=== PATIENT | male | born 1955 | race African-American/Black ===

== ENCOUNTER 2017-04-30 15:13 | Inpatient (IN) ==
[2017-04-30] MEDS ORDERED: METOPROLOL TARTRATE 5 MG/5 ML VIAL IV STA (15:54)
[2017-04-30] MEDS ORDERED: METOPROLOL TARTRATE 5 MG/5 ML VIAL IV ONE (15:58)
[2017-04-30 16:06] LABS: Basophils # 0.1 10*3/uL (0.0-0.2); Basophils % 1.4 % (0.0-0.8); Eosinophils % 0.8 % (0.00-10.9); Hematocrit 41.9 VOL% (42.0-52.0); Immature Granulocytes % 0.6 %; Immature Granulocytes Absolute 0.03 #; Lymphocytes # 0.9 10*3/uL (1.4-4.0); Lymphocytes % 17.2 % (21.2-54.2); Mean Corpuscular HGB Conc 33.4 GM/DL (32-36); Mean Corpuscular Hemoglobin 29 PG (27-34); Mean Corpuscular Volume 85.5 FL (87-102); Mean Platelet Volume 10.6 FL (9.6-12.0); Monocytes # 0.7 10*3/uL (0.11-0.8); Monocytes % 12.9 % (1.7-12.7); Neutrophils # 3.5 10*3/uL (1.4-7.4); Neutrophils % 67.1 % (38.7-73.9); Platelet Count 176 T/CUMM (130-400); Red Cell Distribution Width 13.2 % (9.3-17.3); White Blood Count 5.2 T/CUMM (4-12)
[2017-04-30] MEDS ORDERED: DILTIAZEM 50 MG/10 ML VIAL IV ONE (16:06)
[2017-04-30] MEDS ORDERED: DILTIAZEM 50 MG/10 ML VIAL IV STA ×2 (16:07→16:39)
[2017-04-30 16:21] LABS: INR 1.2; PT Patient Result 12.3 SECS; Partial Thromboplastin Time 27.5 SECS (0-40)
[2017-04-30 16:35] LABS: Alanine Aminotransferase 23 U/L (16-61); Alkaline Phosphatase 133 U/L (45-117); Aspartate Amino Transferase 14 U/L (0-37); Blood Urea Nitrogen 14 MG/DL (7-18); Calcium 9.1 MG/DL (8.5-10.1); Glucose 140 MG/DL (74-106); Osmolality,Calculated 279.5 MOS/KG (273-304); Potassium 3.3 MMOL/L (3.5-5.1); Sodium 139 MMOL/L (136-145); Total Protein 7.7 G/DL (6.4-8.3); Troponin I Only < 0.015 NG/ML (0.00-0.045)
[2017-04-30] MEDS ORDERED: SODIUM CHLORIDE 0.9% 500 ML IV STA (17:00)
[2017-04-30] MEDS: DILTIAZEM INJ 100 MG in SODIUM CHLORIDE 0.9% 100 ML IV SCH (17:05)
[2017-04-30] MEDS ORDERED: ONDANSETRON 4 MG/2 ML VIAL IV PRN (17:36)
[2017-04-30] MEDS ORDERED: DEXTROSE 50% 25 GM/50 ML VIAL IV PRN (17:36)
[2017-04-30] MEDS ORDERED: GLUCAGON 1 MG VIAL IM PRN (17:36)
[2017-04-30] MEDS: ACETAMINOPHEN 325 MG TABLET PO PRN (21:29)
[2017-05-01] MEDS: DILTIAZEM INJ 100 MG in SODIUM CHLORIDE 0.9% 100 ML IV SCH ×2 (02:18→16:51)
[2017-05-01 05:07] LABS: Basophils # 0.1 10*3/uL (0.0-0.2); Basophils % 1.1 % (0.0-0.8); Eosinophils % 0.4 % (0.00-10.9); Hematocrit 38.8 VOL% (42.0-52.0); Hemoglobin 13.3 GM/DL (14.0-18.0); Immature Granulocytes % 0.6 %; Immature Granulocytes Absolute 0.03 #; Lymphocytes # 1.1 10*3/uL (1.4-4.0); Lymphocytes % 20.7 % (21.2-54.2); Mean Corpuscular HGB Conc 34.3 GM/DL (32-36); Mean Corpuscular Hemoglobin 29 PG (27-34); Mean Corpuscular Volume 85.1 FL (87-102); Mean Platelet Volume 10.8 FL (9.6-12.0); Monocytes # 0.8 10*3/uL (0.11-0.8); Neutrophils # 3.4 10*3/uL (1.4-7.4); Neutrophils % 63.2 % (38.7-73.9); Platelet Count 171 T/CUMM (130-400); Red Blood Count 4.56 MC/CUMM (3.8-5.5); Red Cell Distribution Width 13.2 % (9.3-17.3); White Blood Count 5.4 T/CUMM (4-12)
[2017-05-01 05:49] LABS: Albumin 3.5 G/DL (3.4-5.0); Bilirubin,Total 0.7 MG/DL (0.2-1.0); Calcium 8.6 MG/DL (8.5-10.1); Magnesium 1.8 MG/DL (1.8-2.4); Osmolality,Calculated 279.4 MOS/KG (273-304); Potassium 3.4 MMOL/L (3.5-5.1); Total Protein 6.7 G/DL (6.4-8.3)
[2017-05-01] MEDS: ATORVASTATIN 40 MG TABLET PO SCH (16:36)
[2017-05-01] MEDS: APIXABAN 5 MG TABLET PO SCH ×2 (16:36→23:06)
[2017-05-01] MEDS: LISINOPRIL 10 MG TABLET PO SCH (16:36)
[2017-05-01] MEDS: METOPROLOL SUCCINATE XL 100 MG TABLET PO SCH (16:37)
[2017-05-01] MEDS: ACETAMINOPHEN 325 MG TABLET PO PRN ×2 (16:38→23:06)
[2017-05-01] MEDS: FUROSEMIDE 20 MG TABLET PO SCH (16:38)
[2017-05-01] MEDS: AMIODARONE 200 MG TABLET PO SCH (16:38)
[2017-05-01] MEDS: GABAPENTIN 300 MG CAPSULE PO SCH ×2 (16:41→23:06)
[2017-05-01 18:13] LABS: Apearance,Urine CLEAR (Clear); Bilirubin,Urine Negative (Negative); Blood, Urine Negative (Negative); Glucose,Urine (UA) >=500 mg/dL (Negative); Ketones,Urine Negative (Negative); Mucus,Urine Occasional /LPF (Occasional); Nitrite,Urine Negative (Negative); Protein,Urine Negative; RBC,Urine <1 /HPF (0-4); Squamous Epithelial Cell,Urine Occasional /HPF (0-10); Urine Color Yellow (Yellow); Urine Specific Gravity 1.027 (1.001-1.035); Urine Urobilinogen < 2.0 EU/DL (0.2-1.0); WBC,Urine <1 /HPF (0-6)
[2017-05-02 06:29] LABS: Basophils % 0.4 % (0.0-0.8); Eosinophils % 0.2 % (0.00-10.9); Hematocrit 37.6 VOL% (42.0-52.0); Hemoglobin 12.7 GM/DL (14.0-18.0); Immature Granulocytes % 0.4 %; Immature Granulocytes Absolute 0.02 #; Lymphocytes # 1.3 10*3/uL (1.4-4.0); Lymphocytes % 23.9 % (21.2-54.2); Mean Corpuscular HGB Conc 33.8 GM/DL (32-36); Mean Corpuscular Hemoglobin 29 PG (27-34); Mean Corpuscular Volume 85.5 FL (87-102); Monocytes # 0.8 10*3/uL (0.11-0.8); Monocytes % 14.7 % (1.7-12.7); Neutrophils # 3.3 10*3/uL (1.4-7.4); Neutrophils % 60.4 % (38.7-73.9); Platelet Count 151 T/CUMM (130-400); Red Cell Distribution Width 13.2 % (9.3-17.3); White Blood Count 5.4 T/CUMM (4-12)
[2017-05-02 06:50] LABS: Calcium 8.4 MG/DL (8.5-10.1); Osmolality,Calculated 279.5 MOS/KG (273-304); Potassium 3.3 MMOL/L (3.5-5.1)
[2017-05-02] MEDS: METOPROLOL SUCCINATE XL 100 MG TABLET PO SCH (09:29)
[2017-05-02] MEDS: ATORVASTATIN 40 MG TABLET PO SCH (09:29)
[2017-05-02] MEDS: LISINOPRIL 10 MG TABLET PO SCH (09:29)
[2017-05-02] MEDS: GABAPENTIN 300 MG CAPSULE PO SCH ×3 (09:30→21:56)
[2017-05-02] MEDS: APIXABAN 5 MG TABLET PO SCH ×2 (09:30→21:56)
[2017-05-02] MEDS: ACETAMINOPHEN 325 MG TABLET PO PRN ×3 (09:30→21:55)
[2017-05-02] MEDS: AMIODARONE 200 MG TABLET PO SCH (09:30)
[2017-05-02] MEDS: FUROSEMIDE 20 MG TABLET PO SCH (09:30)
[2017-05-02] MEDS: CITALOPRAM 20 MG TABLET PO SCH (09:33)
[2017-05-02] MEDS: DILTIAZEM INJ 100 MG in SODIUM CHLORIDE 0.9% 100 ML IV SCH (16:51)
[2017-05-02] MEDS: POTASSIUM CHLORIDE 20 MEQ TABLET PO PRN (21:56)
[2017-05-03] MEDS: POTASSIUM CHLORIDE 20 MEQ TABLET PO PRN ×4 (00:08→06:40)
[2017-05-03] MEDS: FUROSEMIDE 20 MG TABLET PO SCH ×2 (07:22→09:12)
[2017-05-03] MEDS: LISINOPRIL 10 MG TABLET PO SCH ×2 (07:22→09:13)
[2017-05-03] MEDS: METOPROLOL SUCCINATE XL 100 MG TABLET PO SCH ×2 (07:22→09:25)
[2017-05-03] MEDS: AMIODARONE 200 MG TABLET PO SCH ×2 (07:22→09:10)
[2017-05-03] MEDS: CITALOPRAM 20 MG TABLET PO SCH ×2 (07:23→09:09)
[2017-05-03] MEDS: APIXABAN 5 MG TABLET PO SCH ×3 (07:23→21:15)
[2017-05-03] MEDS: GABAPENTIN 300 MG CAPSULE PO SCH ×4 (07:23→21:15)
[2017-05-03] MEDS: ATORVASTATIN 40 MG TABLET PO SCH ×2 (07:26→09:12)
[2017-05-03] MEDS: DILTIAZEM INJ 100 MG in SODIUM CHLORIDE 0.9% 100 ML IV SCH (16:13)
[2017-05-04] MEDS: ACETAMINOPHEN 325 MG TABLET PO PRN ×2 (04:21→21:39)
[2017-05-04 05:26] LABS: Basophils % 0.6 % (0.0-0.8); Hematocrit 40.8 VOL% (42.0-52.0); Hemoglobin 13.6 GM/DL (14.0-18.0); Immature Granulocytes % 0.3 %; Immature Granulocytes Absolute 0.01 #; Lymphocytes # 1.5 10*3/uL (1.4-4.0); Lymphocytes % 46.9 % (21.2-54.2); Mean Corpuscular HGB Conc 33.3 GM/DL (32-36); Mean Corpuscular Hemoglobin 29 PG (27-34); Mean Corpuscular Volume 86.1 FL (87-102); Mean Platelet Volume 11.2 FL (9.6-12.0); Monocytes # 0.3 10*3/uL (0.11-0.8); Monocytes % 10.6 % (1.7-12.7); Neutrophils # 1.3 10*3/uL (1.4-7.4); Neutrophils % 41.6 % (38.7-73.9); Platelet Count 126 T/CUMM (130-400); Red Blood Count 4.74 MC/CUMM (3.8-5.5); White Blood Count 3.2 T/CUMM (4-12)
[2017-05-04 05:58] LABS: Calcium 8.5 MG/DL (8.5-10.1); Osmolality,Calculated 275.7 MOS/KG (273-304); Potassium 3.9 MMOL/L (3.5-5.1)
[2017-05-04] MEDS: CITALOPRAM 20 MG TABLET PO SCH (09:02)
[2017-05-04] MEDS: ATORVASTATIN 40 MG TABLET PO SCH (09:02)
[2017-05-04] MEDS: GABAPENTIN 300 MG CAPSULE PO SCH ×3 (09:02→21:39)
[2017-05-04] MEDS: DILTIAZEM CD 120 MG CAPSULE PO SCH (09:02)
[2017-05-04] MEDS: AMIODARONE 200 MG TABLET PO SCH (09:02)
[2017-05-04] MEDS: APIXABAN 5 MG TABLET PO SCH ×2 (09:03→21:39)
[2017-05-04] MEDS: METOPROLOL SUCCINATE XL 50 MG TABLET PO SCH (09:03)
[2017-05-04] MEDS: FUROSEMIDE 20 MG TABLET PO SCH (09:03)
[2017-05-04] MEDS: LISINOPRIL 10 MG TABLET PO SCH (09:03)
[2017-05-04] MEDS: DILTIAZEM INJ 100 MG in SODIUM CHLORIDE 0.9% 100 ML IV SCH (18:46)
[2017-05-05] MEDS: AMIODARONE 200 MG TABLET PO SCH (09:41)
[2017-05-05] MEDS: GABAPENTIN 300 MG CAPSULE PO SCH (09:41)
[2017-05-05] MEDS: ATORVASTATIN 40 MG TABLET PO SCH (09:42)
[2017-05-05] MEDS: FUROSEMIDE 20 MG TABLET PO SCH (09:42)
[2017-05-05] MEDS: METOPROLOL SUCCINATE XL 50 MG TABLET PO SCH (09:42)
[2017-05-05] MEDS: APIXABAN 5 MG TABLET PO SCH (09:44)
[2017-05-05] MEDS: LISINOPRIL 10 MG TABLET PO SCH (09:45)
[2017-05-05] MEDS: CITALOPRAM 20 MG TABLET PO SCH (09:46)
[2017-05-05] MEDS: DILTIAZEM CD 120 MG CAPSULE PO SCH (09:46)
[2017-05-05 12:28] VITALS: BP 132/65
== END 2017-05-05 14:56 | disposition home health service (06) | DRG 201 ==
LOC: N.ED 15:13 → SUATTDRO 16:45 → N.EDINP 16:45 → N.TELEN 18:32
PROVIDERS: ADMIT Internal Medicine